=== PATIENT | female | born 1950 | race Caucasian/White ===

== ENCOUNTER 2017-09-14 12:01 | Day surgery (SDC) | payer BC, SELFPAY ==
[~2017-09-14] VITALS: Ht 165.1 cm; Wt 102.5 kg
[~2017-09-14 12:01] MED LIST: ACYC200 PO; ACYC400 PO; ALLO300 PO; ATOR20; ATOR20 PO; Allopurinol100 MG PO; CALCAVITD; CALCIUM PO; CHOL10002 PO; COLC.6 PO; Calcitriol0.25 MCG PO; ENOX40I SC; ESTR2 PO; FENO48; FIBRICOR35 MG PO; FURO20; FURO40; FURO40 PO; Ferrous Sulfat325 M2 PO; GEMF600; GLIM2 PO; GLUCHON; Glucosamine Ch1 EAC4 PO; IBUP600; INDO25 PO; LEVSOD75; LEVSOD75 PO; LIRA0.6P SC; LISI20 PO; LOVAZA; MAGCIT300; MAGOXI400 PO; MELATONIN5 M1 PO; METF500; METF500 PO; MULVITMINF; ONE A DAY VITAMIN PO; OXYACE5T PO; POTASSIUM PO; PROG100 PO; Preservision A1 EACH PO; SIMV40 PO; SITA100T2 PO; Stool Softener100 MG PO; TRAM50; TRAM50 PO; VALS80; VIVELLE DOT; [UNRECOGNIZED DRUG - OTHER]; [UNRECOGNIZED DRUG - OTHER]; [UNRECOGNIZED DRUG - OTHER]
[2017-09-15 03:51] LABS: BASOPHILS ABSOLUTE AUTO 0.02 K/mm3 (0.00-0.23); BASOPHILS PERCENT AUTO 0 % (0-2); EOSINOPHILS ABSOLUTE AUTO 0.16 K/mm3 (0.00-0.68); EOSINOPHILS PERCENT AUTO 2 % (0-6); Hemoglobin 8.5 g/dL (11.5-16.0); IMMATURE GRAN ABSOLUTE AUTO 0.02 K/mm3 (0.00-0.10); IMMATURE GRAN PERCENT AUTO 0 % (0-1); LYMPHOCYTES ABSOLUTE AUTO 1.34 K/mm3 (0.84-5.20); LYMPHOCYTES PERCENT AUTO 17 % (21-46); MONOCYTES ABSOLUTE AUTO 0.64 K/mm3 (0.16-1.47); MONOCYTES PERCENT AUTO 8 % (4-13); Mean Corpuscular HGB 31.1 pg (26.0-34.0); Mean Corpuscular HGB Conc 32.7 g/dL (31.5-36.5); Mean Corpuscular Volume 95 fL (80-100); Mean Platelet Volume 9.6 fL (9.1-12.4); NEUTROPHILS PERCENT AUTO 72 % (41-73); Platelet Count 161 K/mm3 (150-400); RDW Coefficient Variation 13.2 % (11.7-14.2); RDW Standard Deviation 45.5 fL (35.1-46.3); Red Blood Cell Count 2.73 M/mm3 (3.80-5.20); White Blood Cell Count 7.88 K/mm3 (4.00-11.30)
[2017-09-15 04:11] LABS: Anion Gap 9 mmol/L (6-16); Blood Urea Nitrogen 18 mg/dL (8-24); Bun/Creatinine Ratio 18.3 (12.0-20.0); CO2, Blood 26 mmol/L (21-32); Calcium, Blood 7.8 mg/dL (8.5-10.1); Chloride, Blood 105 mmol/L (98-108); Creatinine, Blood 0.99 mg/dL (0.40-1.00); Glomerular Filtration Rate >60 (60-); Glucose, Blood 183 mg/dL (70-99); Magnesium, Blood 1.4 mg/dL (1.6-2.4); Potassium, Blood 4.1 mmol/L (3.5-5.5); Sodium, Blood 140 mmol/L (136-145)
[2017-09-15] MEDS ORDERED: HYDMOR2 PO (13:09)
[2017-09-15] MEDS ORDERED: ENOX40I SC (13:18)
[2018-05-08] MEDS ORDERED: LISI20 PO (16:11)
[2018-05-10] MEDS ORDERED: ALBU90OI61 INH (08:03)
[2018-05-10] MEDS ORDERED: LEVFLO500 PO (08:04)
[2018-05-31] MEDS ORDERED: ATOR40TA PO (09:50)
[2018-05-31] MEDS ORDERED: Estradiol1 MG PO (09:52)
[2018-05-31] MEDS ORDERED: FURO20 PO (09:53)
[2018-05-31] MEDS ORDERED: FENOFIBRIC ACID35 MG PO (09:54)
[2018-05-31] MEDS ORDERED: MELA3 PO (09:55)
[2018-05-31] MEDS ORDERED: B-COMPLEX WITH1 EAC1 PO (09:55)
[2018-05-31] MEDS ORDERED: Feosol45 MG PO (09:56)
[2018-05-31] MEDS ORDERED: [UNRECOGNIZED DRUG - OTHER] PO (09:56)
[2018-05-31] MEDS ORDERED: PRESERVISION A1 EACH PO (09:56)
[2018-05-31] MEDS ORDERED: VITAMIN D32000 UNIT PO (09:56)
[2018-05-31] MEDS ORDERED: TRAM50 PO (09:57)
[2018-05-31] MEDS ORDERED: GLUCOSAMINE CO1 EACH PO (09:57)
[2018-05-31] MEDS ORDERED: Flonase 0.05% N16 GM (09:58)
== END 2017-09-15 15:40 | disposition home or self-care (01) ==
LOC: ORSCMMR 12:01 → PRE IP 12:01 → SURS 12:01 → PRE IP 13:30 → EDSTATUS 13:30 → SURS 17:14 → ORSCMMR 09-15 15:40 → SURS 09-15 15:40
PROVIDERS: Orthopaedic Surgery
PROC: 0SRD0J9 Replacement of Left Knee Joint with Synthetic Substitute, Cemented, Open Approach (ICD-10-PCS; principal; 2017-09-14 13:30)
DX: M17.12 Unilateral primary osteoarthritis, left knee (principal); Z01.812 Encounter for preprocedural laboratory examination; Z01.818 Encounter for other preprocedural examination; I10 Essential (primary) hypertension; J45.909 Unspecified asthma, uncomplicated; G47.33 Obstructive sleep apnea (adult) (pediatric); N18.9 Chronic kidney disease, unspecified; E11.9 Type 2 diabetes mellitus without complications; E03.9 Hypothyroidism, unspecified; E66.01 Morbid (severe) obesity due to excess calories; Z68.37 Body mass index [BMI] 37.0-37.9, adult; Z79.899 Other long term (current) drug therapy; Z87.891 Personal history of nicotine dependence
CPT/HCPCS: 36415; 73560-LT; 80048; 82947; 83735; 85025; 86850; 86900; 86901; 88300; 94762; 97110; 97116; 97161; 97530; C1713; C1776; G8978; G8979; J0171; J0735; J1100; J1650; J1885; J2250; J2405; J2795; J3010; J3370; J3475; J7120

== ENCOUNTER → 2017-12-05 | Outpatient (CLI) | payer BC, SELFPAY ==
[~2017-12-05] MED LIST changes: +CEPH500 PO; +CYCL10 PO; +HYDMOR2 PO
[2017-12-05 19:42] LABS: Albumin, Blood 2.8 g/dL (3.4-5.0); Anion Gap 9 mmol/L (6-16); Blood Urea Nitrogen 54 mg/dL (8-24); Bun/Creatinine Ratio 24.9 (12.0-20.0); CO2, Blood 25 mmol/L (21-32); Calcium, Blood 8.6 mg/dL (8.5-10.1); Chloride, Blood 95 mmol/L (98-108); Creatinine, Blood 2.17 mg/dL (0.40-1.00); Glomerular Filtration Rate 24 (60-); Glucose, Blood 194 mg/dL (70-99); Phosphorus, Blood 3.3 mg/dL (2.5-4.9); Sodium, Blood 129 mmol/L (136-145)
[2017-12-05 19:44] LABS: Appearance, Urine Clear (Clear); Bilirubin, Urine Neg (Neg); Blood, Urine 5+ (Neg); Color, Urine Yellow (P-Yellow); Glucose Qualitative, Urine Neg (Neg); Ketones, Urine Neg (Neg); Leukocyte Esterase, Urine 3+ (Neg); Nitrite, Urine Neg (Neg); Protein, Urine 2+ (Neg); Urobilinogen, Urine NORM (Normal)
[2017-12-05 20:03] LABS: White Blood Cells, Urine 25-50 /hpf (0-5)
[2017-12-05 20:04] LABS: Bacteria Many /hpf; Squamous Epithelial Cells Mod /hpf (Few)
== END | disposition home or self-care (01) ==
LOC: LAB SHORT 12:30 → LAB 12:30
PROVIDERS: Internal Medicine Hematology & Oncology; Internal Medicine Nephrology
DX: D47.2 Monoclonal gammopathy (principal); R53.83 Other fatigue; N18.2 Chronic kidney disease, stage 2 (mild); D63.1 Anemia in chronic kidney disease; R73.09 Other abnormal glucose
CPT/HCPCS: 36415; 80069; 81001; 83036; 85018; 87077; 87086; 87186

== ENCOUNTER 2017-12-06 18:04 | Inpatient (IN) | payer BC, SELFPAY ==
[~2017-12-06] VITALS: Ht 167.6 cm; Wt 105.8 kg
[~2017-12-06 18:04] MED LIST changes: -CEPH500 PO; -CYCL10 PO
[2017-12-06 20:48] LABS: Hematocrit 29.4 % (33.0-51.0); Hemoglobin 9.9 g/dL (11.5-16.0); Mean Corpuscular HGB 30.2 pg (26.0-34.0); Mean Corpuscular HGB Conc 33.7 g/dL (31.5-36.5); Mean Corpuscular Volume 90 fL (80-100); Mean Platelet Volume 9.4 fL (9.1-12.4); Platelet Count 167 K/mm3 (150-400); RDW Coefficient Variation 13.6 % (11.7-14.2); RDW Standard Deviation 45.1 fL (35.1-46.3); Red Blood Cell Count 3.28 M/mm3 (3.80-5.20); White Blood Cell Count 6.59 K/mm3 (4.00-11.30)
[2017-12-06 21:17] LABS: BASOPHILS PERCENT MAN 0 % (0-2); EOSINOPHILS PERCENT MAN 0 % (0-6); LYMPHOCYTES ABSOLUTE MAN 0.19 K/mm3 (0.84-5.20); LYMPHOCYTES PERCENT MAN 3 % (21-46); MONOCYTES ABSOLUTE MAN 0.32 K/mm3 (0.16-1.47); MONOCYTES PERCENT MAN 5 % (4-13); NEUTROPHILS ABSOLUTE MAN 6.06 K/mm3 (1.96-9.15); SEG NEUTROPHILS PERCENT MAN 92 % (41-73); TOTAL CELLS COUNTED 100
[2017-12-07 04:57] LABS: Hematocrit 30.1 % (33.0-51.0)
[2017-12-07 05:16] LABS: Albumin, Blood 2.4 g/dL (3.4-5.0); Anion Gap 9 mmol/L (6-16); Blood Urea Nitrogen 45 mg/dL (8-24); Bun/Creatinine Ratio 25.9 (12.0-20.0); CO2, Blood 24 mmol/L (21-32); Calcium, Blood 8.7 mg/dL (8.5-10.1); Chloride, Blood 99 mmol/L (98-108); Creatinine, Blood 1.74 mg/dL (0.40-1.00); Glomerular Filtration Rate 31 (60-); Glucose, Blood 125 mg/dL (70-99); Magnesium, Blood 2.2 mg/dL (1.6-2.4); Phosphorus, Blood 2.9 mg/dL (2.5-4.9); Potassium, Blood 3.6 mmol/L (3.5-5.5); Sodium, Blood 132 mmol/L (136-145)
[2017-12-08 05:57] LABS: Albumin, Blood 2.4 g/dL (3.4-5.0); Anion Gap 8 mmol/L (6-16); Blood Urea Nitrogen 25 mg/dL (8-24); Bun/Creatinine Ratio 22.5 (12.0-20.0); CO2, Blood 26 mmol/L (21-32); Chloride, Blood 102 mmol/L (98-108); Creatinine, Blood 1.11 mg/dL (0.40-1.00); Glomerular Filtration Rate 52 (60-); Glucose, Blood 138 mg/dL (70-99); Magnesium, Blood 1.8 mg/dL (1.6-2.4); Phosphorus, Blood 2.1 mg/dL (2.5-4.9); Potassium, Blood 3.8 mmol/L (3.5-5.5); Sodium, Blood 136 mmol/L (136-145)
[2017-12-08] MEDS ORDERED: CYCL10 PO (14:22)
[2017-12-08] MEDS ORDERED: CEPH500 PO (14:27)
== END 2017-12-08 14:50 | disposition home or self-care (01) | DRG 690 ==
LOC: ER 18:04 → MEDS 19:40
PROVIDERS: Family Medicine; Internal Medicine Nephrology
DX: N10 Acute pyelonephritis (principal); E87.1 Hypo-osmolality and hyponatremia; B96.20 Unspecified Escherichia coli [E. coli] as the cause of diseases classified elsewhere; Z16.23 Resistance to quinolones and fluoroquinolones; E11.22 Type 2 diabetes mellitus with diabetic chronic kidney disease; I12.9 Hypertensive chronic kidney disease with stage 1 through stage 4 chronic kidney disease, or unspecified chronic kidney disease; N18.3 Chronic kidney disease, stage 3 (moderate); N17.9 Acute kidney failure, unspecified; E86.0 Dehydration; E03.9 Hypothyroidism, unspecified; D63.1 Anemia in chronic kidney disease; E87.70 Fluid overload, unspecified; E83.39 Other disorders of phosphorus metabolism; E88.09 Other disorders of plasma-protein metabolism, not elsewhere classified; E21.3 Hyperparathyroidism, unspecified; Z87.891 Personal history of nicotine dependence; Z88.0 Allergy status to penicillin; Z88.8 Allergy status to other drugs, medicaments and biological substances; Z79.890 Hormone replacement therapy; Z79.899 Other long term (current) drug therapy
CPT/HCPCS: 36415; 74176; 80069; 81001; 82947; 83036; 83605; 83735; 85014; 85018; 85025; 87040; 87077; 87086; 87186; 96365; 99285; J0744; J0881; J1644; J1956; J3010; J7030; J7060

== ENCOUNTER → 2018-03-13 | Outpatient (CLI) | payer BC ==
[~2018-03-13] MED LIST changes: +CEPH500 PO; +CYCL10 PO
[2018-03-13 08:59] LABS: Test Name 306266
== END ==
LOC: LAB 08:00 → LAB SHORT 08:00
PROVIDERS: Nurse Practitioner Adult Health
DX: N20.0 Calculus of kidney (principal)
CPT/HCPCS: 81050

== ENCOUNTER 2019-03-16 07:12 | Day surgery (SDC) | payer BC, OTHER ==
[~2019-03-16] VITALS: Ht 167.6 cm; Wt 103.3 kg
[~2019-03-16 07:12] MED LIST changes: +ALBU90OI61 INH; +ATOR40TA PO; +B-COMPLEX WITH1 EAC1 PO; +Estradiol1 MG PO; +FENOFIBRIC ACID35 MG PO; +FURO20 PO; +Feosol45 MG PO; +Flonase 0.05% N16 GM; +GLUCOSAMINE CO1 EACH PO; +LEVFLO500 PO; +MELA3 PO; +PRESERVISION A1 EACH PO; +TRULICITY0.75 MG/0. SC; +VITAMIN D32000 UNIT PO; +[UNRECOGNIZED DRUG - OTHER] PO
--- NOTE | 2019-03-16 07:47 | NUR ---
INTO [facility] Ambulatory in Day Surgery History, Chart, Medications and Allergies reviewed before start of procedure.Lungs clear T/O to Auscultation. Patient confirms NPO status and agrees with scheduled surgery. Patient States Post-Procedure ride home has been arranged.
--- NOTE | 2019-03-16 10:58 | NUR ---
PT TO STEP APPROX 3-4 MINUTES AGO. AWAKE, CONVERSING WITH STAFF. C/O DISCOMFORT TO SURGICAL SITE. PT STATES PAIN 4/10 ON SCALE. REPOSITIONED FOR COMFORT. DESCRIBES PAIN "BURNING".
--- NOTE | 2019-03-16 11:17 | NUR ---
MEDICATED FOR PAIN IN PREPARATION FOR DISCHARGE AND PAIN LEVEL OF 4/10 PER PATIENT REQUEST.
--- NOTE | 2019-03-16 11:45 | NUR ---
REVIEWED DRAIN CARE WITH PATIENT AND DAUGHTER. DEMONSTRATED EMPTYING DRAIN AND STRIPPING TUBING. BOTH VERBALIZE UNDERSTANDING OF ALL. HANDOUT GIVEN REGARDING DRAIN CARE AND TRACKING SHEET FOR MEASURING.
--- NOTE | 2019-03-16 11:46 | NUR ---
PT AMBULATED TO BATHROOM AND BACK - TOLERATED ACTIVITY WELL. DRESSING WITH ASSISTANCE OF DAUGHTER AT THIS TIME. REVIEWED DISCHARGE INSTRUCTIONS WITH PATIENT AND DAUGHTER- BOTH OF WHOM VERBALIZE UNDERSTANDING OF ALL INSTRUCTIONS GIVEN.
--- NOTE | 2019-03-16 11:56 | NUR ---
IV D/C TIP INTACT. PT DISCHARGED HOME VIA WC WITH DAUGHTER TO DRIVE HER.
== END 2019-03-16 23:05 | disposition home or self-care (01) ==
LOC: ORSCMMR 07:12 → ORD 08:30 → ORSCMMR 08:30
PROVIDERS: Surgery
PROC: 0JB80ZZ Excision of Abdomen Subcutaneous Tissue and Fascia, Open Approach (ICD-10-PCS; principal; 2019-03-16 08:30)
DX: L76.32 Postprocedural hematoma of skin and subcutaneous tissue following other procedure (principal); E11.22 Type 2 diabetes mellitus with diabetic chronic kidney disease; I12.9 Hypertensive chronic kidney disease with stage 1 through stage 4 chronic kidney disease, or unspecified chronic kidney disease; N18.9 Chronic kidney disease, unspecified; J45.909 Unspecified asthma, uncomplicated; G47.33 Obstructive sleep apnea (adult) (pediatric); Z87.891 Personal history of nicotine dependence; E66.01 Morbid (severe) obesity due to excess calories; Z68.37 Body mass index [BMI] 37.0-37.9, adult; Z79.899 Other long term (current) drug therapy
CPT/HCPCS: 82947; 88305; A9270-GY; J2250; J2405; J2704; J3010; J7120

== ENCOUNTER 2025-04-24 06:03 | Day surgery (SDC) | payer OTHER ==
[~2025-04-24] VITALS: Ht 198.1 cm; Wt 109.0 kg
[2025-04-24] VITALS (18 sets, daily range): BP systolic 86–128; BP diastolic 57–93
[~2025-04-24 06:03] MED LIST changes: -CHOL10002 PO; -TRULICITY0.75 MG/0. SC; +TRULICITY4.5 MG/0.5 SC; +VITAMIN D5000 UNIT PO
[2025-04-24] MEDS ORDERED: Benzocaine Oral Spray 0.5ML UD ONE (06:53)
[2025-04-24] MEDS ORDERED: BUME1 PO (06:59)
[2025-04-24] MEDS ORDERED: INSULANI SC (06:59)
[2025-04-24] MEDS ORDERED: ELIQUIS5 M2 PO (07:00)
[2025-04-24] MEDS ORDERED: METO50 PO (07:00)
[2025-04-24] MEDS ORDERED: TRAZ50 PO (07:01)
[2025-04-24] MEDS ORDERED: ALDACTONE25 MG PO (07:01)
[2025-04-24] MEDS ORDERED: GEMF600 PO (07:02)
[2025-04-24] MEDS ORDERED: EUTHYROX88 MCG PO (07:02)
[2025-04-24] MEDS ORDERED: MONT10T PO (07:03)
[2025-04-24] MEDS ORDERED: NS 1,000 ML IV ONE (07:06)
--- NOTE | 2025-04-24 07:50 | NUR ---
PT AWAKE AND CONVERSING APPROPRIATELY; DENIES PAIN POST PROCEDURE, VSS, ON RA. PT'S DAUGHTER AT BEDSIDE, ATTENTIVE.
--- NOTE | 2025-04-24 08:42 | NUR ---
PT DRESSED SELF WITHOUT ISSUE, IV REMOVED-CANNULA INTACT. PT AND DAUGHTER RECEIVED DISCHARGE INSTRUCTIONS, MED LIST AND AFTER CARE INSTRUCTIONS; VERBALIZED GOOD UNDERSTANDING. PT LEFT FACILITY VIA W/C, CONDITION STABLE.
[2025-04-24] MEDS ORDERED: Propofol 10mg/ml 20 ml Vial (Procedural) IV ONE (10:53)
== END 2025-04-24 23:00 | disposition home or self-care (01) ==
LOC: MHTC 06:03
DX: I48.91 Unspecified atrial fibrillation (principal); E11.9 Type 2 diabetes mellitus without complications; I11.0 Hypertensive heart disease with heart failure; I50.9 Heart failure, unspecified; E78.5 Hyperlipidemia, unspecified; E07.9 Disorder of thyroid, unspecified; G47.33 Obstructive sleep apnea (adult) (pediatric); E66.01 Morbid (severe) obesity due to excess calories; Z68.41 Body mass index [BMI] 40.0-44.9, adult; Z79.890 Hormone replacement therapy; Z79.899 Other long term (current) drug therapy; Z88.0 Allergy status to penicillin; Z91.041 Radiographic dye allergy status; Z88.8 Allergy status to other drugs, medicaments and biological substances
CPT/HCPCS: 92960; 93005; 93010; 93312; 93325; A9270; J2704; J7030